=== PATIENT | male | born 1985 | race Caucasian/White ===

== ENCOUNTER 2021-11-15 09:29 | Outpatient (CLI) | payer BC, SELFPAY ==
[2021-11-15 13:42] LABS: Hematocrit 45.2 % (37.0-53.0); Hemoglobin* 15.2 gm/dL (13.5-17.5); Mean Corpuscular HGB Conc 34 gm/dL (32-36); Mean Corpuscular Hemoglobin 31 pg (26-34); Mean Corpuscular Volume 91 fL (80-100); Platelet Count* 267 K/uL (140-440); Red Blood Count 4.97 m/uL (4.30-5.90); White Blood Count* 9.95 K/uL (4.50-11.00)
[2021-11-15 13:55] LABS: Slide Review Reflex No
[2021-11-15 14:01] LABS: Chloride* 102 mmol/L (96-114); Potassium* 4.5 mmol/L (3.6-5.1); Sodium* 138 mmol/L (135-149)
[2021-11-15 14:03] LABS: Cholesterol* 184 mg/dL (90-199)
[2021-11-15 14:04] LABS: Alanine Aminotransferase* 11 U/L (4-50); Blood Urea Nitrogen* 12 mg/dL (5-24); Carbon Dioxide* 29 mmol/L (20-32); Creatinine* 1.1 mg/dL (0.5-1.5); Estimated Glomerular Filt Rate 90 ml/min; Glucose* 102 mg/dL (60-115); Triglycerides* 108 mg/dL (40-149)
[2021-11-15 14:05] LABS: Calcium* 9.5 mg/dL (8.4-10.6); HDL Cholesterol* 56 mg/dL (>=40); LDL Cholesterol Calculated 106 mg/dL (<100)
== END 2021-11-15 09:30 | disposition home or self-care (01) ==
PROVIDERS: PCP Family Medicine; Visit Provider Family Medicine
DX: Z00.00 Encounter for general adult medical examination without abnormal findings (principal); Z13.6 Encounter for screening for cardiovascular disorders; F41.1 Generalized anxiety disorder
CPT/HCPCS: 80048; 80061; 84460; 85027